=== PATIENT | female | born 1960 | race Two or more races ===

== ENCOUNTER 2024-07-26 12:42 | Observation (INO) | payer OTHER ==
[~2024-07-26] VITALS: Ht 162.6 cm; Wt 90.7 kg
[~2024-07-26 12:42] MED LIST: AMPDEX10 PO; AMPDEX5 PO; AMPHETAMINE; AZIT250 PO; Bactroban22 GM TOP; Cipro500 MG PO; DEXTROAMPHETAMINE; LITH450ER; Lotrimin AF113 GM TOP; OLAN10 PO; Zyprexa10 MG PO
[2024-07-26] MEDS ORDERED: DiphenhydrAMINE HCl 50 MG/ML 1ML Vial IM ONE (12:45)
[2024-07-26] MEDS ORDERED: Haloperidol Lactate Inj. 5 MG/ML Injection IM ONE (12:45)
[2024-07-26] MEDS ORDERED: LORazepam 2 MG/ML 1ML Injection IM ONE (12:45)
[2024-07-26] MEDS ORDERED: OLANZapine 10 MG Vial IM ONE (13:15)
[2024-07-26 14:43] LABS: BASOPHILS ABSOLUTE AUTO 0.04 K/mm3 (0.00-0.23); BASOPHILS PERCENT AUTO 1 % (0-2); EOSINOPHILS ABSOLUTE AUTO 0.04 K/mm3 (0.00-0.68); EOSINOPHILS PERCENT AUTO 1 % (0-6); Hematocrit 34.3 % (33.0-51.0); Hemoglobin 11.8 g/dL (11.5-16.0); IMMATURE GRAN ABSOLUTE AUTO 0.03 K/mm3 (0.00-0.10); IMMATURE GRAN PERCENT AUTO 0 % (0-1); LYMPHOCYTES PERCENT AUTO 23 % (21-46); MONOCYTES ABSOLUTE AUTO 1.25 K/mm3 (0.16-1.47); MONOCYTES PERCENT AUTO 15 % (4-13); Mean Corpuscular HGB 30.1 pg (26.0-34.0); Mean Corpuscular HGB Conc 34.4 g/dL (31.5-36.5); Mean Corpuscular Volume 88 fL (80-100); Mean Platelet Volume 9.5 fL (9.1-12.4); NEUTROPHILS ABSOLUTE AUTO 5.12 K/mm3 (1.96-9.15); NEUTROPHILS PERCENT AUTO 61 % (41-73); Platelet Count 304 K/mm3 (150-400); RDW Coefficient Variation 14.6 % (11.7-14.2); RDW Standard Deviation 47.5 fL (35.1-46.3); Red Blood Cell Count 3.92 M/mm3 (3.80-5.20); White Blood Cell Count 8.38 K/mm3 (4.00-11.30)
[2024-07-26 14:44] LABS: Source, Urine Clean Catch
[2024-07-26 14:49] LABS: Appearance, Urine Clear (Clear); Bilirubin, Urine Neg (Neg); Blood, Urine Neg (Neg); Glucose Qualitative, Urine Neg (Neg); Ketones, Urine Neg (Neg); Leukocyte Esterase, Urine 3+ (Neg); Nitrite, Urine Neg (Neg); Protein, Urine 1+ (Neg); Specific Gravity, Urine 1.005 (1.003-1.022); Urobilinogen, Urine NORM (Normal)
[2024-07-26 14:56] LABS: Color, Urine No Color (P-Yellow)
[2024-07-26 15:11] LABS: U Amphetamine Screen Not Detected; U Barbituate Screen Not Detected; U Benzodiazapine Screen Not Detected; U Buprenorphine Screen Not Detected; U Cannabinoids Screen Not Detected; U Cocaine Screen Not Detected; U Methadone Screen Not Detected; U Methamphetamine Screen DETECTED; U Opiates Screen Not Detected; U Oxycodone Screen Not Detected; U Phencyclidine Screen Not Detected
[2024-07-26 15:14] LABS: Bacteria Few /hpf; Red Blood Cells, Urine Not Seen /hpf (0-2); Renal Epithelial Rare /hpf (0-Rare); Squamous Epithelial Cells Few /hpf (Few); Transitional Epithelial Cells Rare /hpf (0-Rare)
[2024-07-26 15:15] LABS: Ethanol (Alcohol), Blood, Med <3 mg/dL; Free Thyroxine 1.34 ng/dL (0.70-1.60); Salicylate <1.7 mg/dL (2.8-20.0)
[2024-07-26 15:16] LABS: Acetaminophen, Random <2.0 ug/mL (10.0-30.0); Alanine Aminotransfer (ALT/SGP 28 U/L (12-78); Albumin, Blood 3.3 g/dL (3.4-5.0); Albumin/Globulin Ratio 0.9 (0.8-1.8); Alk Phos 99 U/L (50-136); Anion Gap 14 mmol/L (3-11); Aspartate Aminotrans (AST/SGOT 41 U/L (12-37); Bilirubin, Total 1.1 mg/dL (0.1-1.0); Blood Urea Nitrogen 20 mg/dL (8-24); Bun/Creatinine Ratio 23.4 (12.0-20.0); CO2, Blood 25 mmol/L (21-32); Calcium, Blood 8.5 mg/dL (8.5-10.1); Chloride, Blood 100 mmol/L (98-108); Creatinine, Blood 0.86 mg/dL (0.40-1.00); Globulin, Blood 3.8 g/dL (2.2-4.0); Glomerular Filtration Rate 76 (60-); Glucose, Blood 112 mg/dL (70-99); Potassium, Blood 3.1 mmol/L (3.5-5.5); Sodium, Blood 136 mmol/L (136-145); Total Protein, Blood 7.1 g/dL (6.4-8.2)
[2024-07-26] MEDS ORDERED: Doxycycline Hyclate 100 MG TAB PO SCH (21:00)
[2024-07-27 21:45] VITALS: BP 112/78
[2024-07-28] MEDS ORDERED: DOXY100 PO (09:38)
[2024-07-30 21:28] LABS: AMITRIPTYLINE, QUANT, URN <100 ng/mL; CLOMIPRAMINE QUANT, URN <200 ng/mL; DESIPRAMINE QUANT, URN <100 ng/mL; DOXEPIN QUANT, URN <100 ng/mL; IMIPRAMINE QUANT, URN <100 ng/mL; NORCLOMIPRAMINE QUANT, URN <200 ng/mL; NORDOXEPIN QUANT, URN <100 ng/mL; NORTRIPTYLINE, QUANT, URN <100 ng/mL; PROTRIPTYLINE QUANT, URN <100 ng/mL
== END 2024-07-28 11:13 | disposition home or self-care (01) ==
LOC: ER 12:42 → EOR 12:43
PROVIDERS: Emergency Medicine; ADMIT Student in an Organized Health Care Education/Training Program
DX: F15.229 Other stimulant dependence with intoxication, unspecified (principal); F20.9 Schizophrenia, unspecified; J45.909 Unspecified asthma, uncomplicated; F17.200 Nicotine dependence, unspecified, uncomplicated; Z79.899 Other long term (current) drug therapy; Z88.0 Allergy status to penicillin; Z88.1 Allergy status to other antibiotic agents; Z88.5 Allergy status to narcotic agent; Z88.7 Allergy status to serum and vaccine
CPT/HCPCS: 80053; 80320; 81001; 84439; 84443; 85025; 96372; 99285-25; A9270; G0378; G0480; G0481; J1200; J1630; J2060

== ENCOUNTER 2024-09-24 23:11 | Emergency (ER) | payer OTHER ==
[~2024-09-24] VITALS: Ht 152.4 cm; Wt 65.8 kg
[~2024-09-24 23:11] MED LIST changes: +DOXY100 PO
[2024-09-24 23:25] VITALS: BP 130/99
[2024-09-25] MEDS ORDERED: SULTRIDS PO (03:50)
== END 2024-09-25 03:58 | disposition home or self-care (01) ==
LOC: ER 23:11
DX: L03.116 Cellulitis of left lower limb (principal); J45.909 Unspecified asthma, uncomplicated; Z59.89 Other problems related to housing and economic circumstances; Z88.0 Allergy status to penicillin; Z88.1 Allergy status to other antibiotic agents; Z88.9 Allergy status to unspecified drugs, medicaments and biological substances; Z88.2 Allergy status to sulfonamides; Z79.899 Other long term (current) drug therapy; Z79.1 Long term (current) use of non-steroidal anti-inflammatories (NSAID); Z79.2 Long term (current) use of antibiotics
CPT/HCPCS: 99283

== ENCOUNTER 2024-11-07 10:35 | Inpatient (IN) | payer OTHER ==
[~2024-11-07] VITALS: Ht 149.9 cm; Wt 57.0 kg
[~2024-11-07 10:35] MED LIST changes: +SULTRIDS PO
[2024-11-07 11:46] VITALS: BP 125/94
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
--- NOTE | 2024-11-07 13:20 | NUR ---
ADDITIONAL ADMISSION NOTE PT DOES HAVE ON A SOLID BRACLET TO HER R WRIST THAT WILL NOT SLIP OFF OF HER HAND. SHE ALSO HAS 3 RINGS ON THAT WILL NOT COME OFF.
[2024-11-07] MEDS ORDERED: Ondansetron 4 MG SoluTab MM PRN (16:25)
[2024-11-07] MEDS ORDERED: LORazepam 2 MG Tab PO PRN (16:25)
[2024-11-07] MEDS ORDERED: Ibuprofen 600 MG Tab PO PRN (16:25)
[2024-11-07] MEDS ORDERED: Haloperidol 5 MG Tab PO PRN (16:25)
[2024-11-07] MEDS ORDERED: HydrOXYzine Pamoate 50 MG Cap PO PRN (16:25)
[2024-11-07] MEDS ORDERED: Polyethylene Glycol 3350 17 gm PO PRN (16:25)
[2024-11-07] MEDS ORDERED: OLANZapine ODT 10 MG Tab MM PRN (16:30)
[2024-11-07] MEDS ORDERED: LORazepam 2 MG/ML 1ML Injection IM PRN (16:30)
[2024-11-07] MEDS ORDERED: Acetaminophen 325 MG TABLET PO PRN (16:30)
[2024-11-07] MEDS ORDERED: Calcium Carbonate 500 MG Tab Chew PO PRN (16:30)
[2024-11-07] MEDS ORDERED: Aluminum Hydroxide 320MG/5ML 473 ML PO PRN (16:30)
[2024-11-07] MEDS ORDERED: TraZODone HCl 50 MG Tab PO PRN (16:30)
[2024-11-07] MEDS ORDERED: Melatonin 3 MG Tab PO PRN (16:35)
[2024-11-07] MEDS ORDERED: DiphenhydrAMINE HCl 50 MG/ML 1ML Vial IM PRN (16:35)
[2024-11-07] MEDS ORDERED: DiphenhydrAMINE HCl 50 MG Cap PO PRN (16:35)
[2024-11-07] MEDS ORDERED: Haloperidol Lactate Inj. 5 MG/ML Injection IM PRN (16:35)
[2024-11-07 20:00] VITALS: BP 113/82
[2024-11-07] MEDS ORDERED: OLANZapine 10 MG Tab PO SCH (21:00)
--- NOTE | 2024-11-08 05:52 | NUR ---
SHIFT SUMMARY NO ACUTE EVENTS. PT SLEPT FOR WHOLE SHIFT, DECLINED SNACKTIME OR TO COME OUT OF ROOM. TOOK MEDICATIONS. DENIED SI, HI, AVTH. ANSWERED W/ ONE WORD ANSWERS, CONSTRICTED AFFECT, APPEARED IRRITABLE.
[2024-11-08 08:05] LABS: CHOL/HDL RATIO 2.8; Cholesterol 150 mg/dL (50-200); HDL Cholesterol 54 mg/dL (>39); LDL/HDL RATIO 1.4; Low Density Lipoprotein Chol 78 mg/dL (0-110); Triglycerides 91 mg/dL (30-160); Very Low Density Lipoprot Chol 18 mg/dL (6-32)
[2024-11-08] MEDS ORDERED: Multivitamins 1 Tab PO SCH (09:00)
[2024-11-08 12:38] VITALS: BP 113/82
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
[2024-11-08 23:14] VITALS: BP 129/80
--- NOTE | 2024-11-09 05:05 | NUR ---
SHIFT SUMMARY PT SLEPT/RESTED QUIETLY FOR MOST OF SHIFT, DID NOT COME TO SNACKTIME. TOOK MEDICATIONS. DENIES SI, HI, AVTH. PT AWAKE IN MIDDLE OF NIGHT FOR SNACK AND TO ASK FOR PRN BEDTIME MEDS. SLEEPING/RESTING QUIETLY SINCE THEN.
[2024-11-09 12:34] VITALS: BP 110/86
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
[2024-11-09 20:14] VITALS: BP 120/83
--- NOTE | 2024-11-09 20:20 | NUR ---
JEWELRY IN PLACE PT NOTED TO HAVE A BRACELET TO RIGHT WRIST AND 3 RINGS (1 TO RIGHT MIDDLE FINGER, 1 TO LEFT INDEX FINGER AND 1 TO LEFT MIDDLE FINGER) ALL IN PLACE AND INTACT, AND UNABLE TO REMOVE.
--- NOTE | 2024-11-10 04:12 | NUR ---
SHIFT SUMMARY PT IN BED AT START OF SHIFT, AWAKES EASILY FOR SNACK. SHE DENIES ANY SI, HI, THOUGHTS OF SELF HARM OR AVH. NO INTERNAL STIMULI NOTED. PT STATES SHE DOES NOT KNOW WHY SHE IS HERE OR WHY THE POLICE BROUGHT HER HERE. PT HAD EVENING SNACK AND WAS COMPLIANT WITH MEDICATIONS. SHE SEEMED IRRITATBLE WHILE ANSWERING QUESTIONS BUT WAS COOPERATIVE. SHE WENT TO BED AFTER SNACK AND AWOKE AROUND 0030 ASKING FOR A SNACK. PT INFORMED OF UNIT POLICY AND WENT BACK TO BED. SHE HAS BEEN SLEEPING/RESTING THROUGHOUT THE NIGHT. Q15 MINUTE CHECKS TO CONTINUE PER PT SAFETY.
--- NOTE | 2024-11-10 15:07 | NUR ---
NURSE NOTE ANA ASKEW COMPUTER LAB PARA PROFESSIONAL FOUND SPILLED COFFEE IN PT'S ROOM. SHE LEFT ROOM TO GET PROVISIONS TO CLEAN IT UP D/T IT WAS A LARGER QUANTITY, AND UPON RETURNING TO PT'S ROOM THE SPILL HAD BEEN CLEANED UP. PT REFUSED TO ANSWER WHAT SHE CLEANED IT UP WITH SO THE ROOM WAS INVESTIGATED BY CADDIE SUPERVISOR AND COMPUTER LAB PARA PROFESSIONAL TO SEE IF THERE WAS SOILED LINENS OR SOAKING PAPER PRODUCTS AND NOTHING WAS FOUND THAT COULD HAVE CLEANED IT UP. THIS UPSET THE PATIENT AND SHE GOT ELEVATED AND STARTED PACING UP AND DOWN THE HALLWAY AGITATED AND CALLING THE STAFF "ANNEMARIE HERNANDEZ" AND REFUSING TO REDIRECT. SHE WAS COOPERATIVE WITH BEING MEDICATED WITH ZYPREXA. AND THEN SHE ATTENDED GROUP.
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
[2024-11-10 19:54] VITALS: BP 124/88
--- NOTE | 2024-11-10 20:41 | NUR ---
PT STATES SHE IS ALLERGIC TO BACTRIM BUT DOES NOT ELABORATE ON TYPE OF REACTION. DOES ADMIT TO "SEVERE STOMACH UPSET" BUT DOES NOT CLARIFY ANYTHING FURTHER. MD NOTIFIED - MED HELD FOR PM DOSE AND MD STATES HE WILL CHANGE IN AM.
[2024-11-10] MEDS ORDERED: OLANZapine 5 MG Tab PO SCH (21:00)
[2024-11-10] MEDS ORDERED: Trimethoprim/Sulfamethoxazole SS Tab PO SCH (21:00)
--- NOTE | 2024-11-10 21:56 | NUR ---
MID SHIFT SUMMARY FOR REPORT OFF: REPORT GIVEN TO CHAPITO Monzon RN. PATIENT HAD AN UNEVENTFUL EVENING. PARTICIPATED IN SNACK AND THEN REQUESTED MEDICATIONS FOR SLEEP - ADMINISTERED PER ORDERS. PT HAS SLEPT (EYES CLOSED, DEEP EVEN BREATHIN) SINCE THAT TIME. EXPRESSED NO OTHER NEEDS THIS EVENING. DENIES SI/HI/HALLUCINATIONS THOUGHT DOES STATE THAT TOSIN MON SPEAKS TO HER AND "TELLS ME I'M BEAUTIFUL EVEN THOUGH I'M FAT."
--- NOTE | 2024-11-11 04:57 | NUR ---
SHIFT SUMMARY ASSUMED CARE 2200, PATIENT CONTINUES TO BE SLEEPING RESP EVEN AND UNLABORED. MONITORING Q15MIN
[2024-11-11 08:25] VITALS: BP 104/77
[2024-11-11] MEDS ORDERED: Nicotine Polacrilex 2 MG Gum PO PRN (12:50)
--- NOTE | 2024-11-11 17:42 | NUR ---
SHIFT NOTE PT DENIED ALL HI/SI/AVH THIS SHIFT, YET STILL CONTINUES TO HAVE CONVERSTIONS WITH HERSELF. SHE WAS COMPLIANT WITH ALL MEDICATIONS AND ATTENDED GROUPS. SHE DENIED ANY ANXIETY AND GOT SLIGHTLY AGITATED ONCE WHEN SHE WAS TOLD THAT COFFEE TIME WAS OVER AND THE STAFF WAS NOT GOING TO MAKE ANYMORE COFFEE. SHE GOT SLIGHTLY ELEVATED IN VOICE AND STOMPING BUT THEN WAS EASILY REDIRECTED TO THE GROUP AND CALMED BACK DOWN. SHE TOOK A NAP IN THE AFTERNOON BEFORE DINNER AND ATE AT ALL MEALS AND SNACKS.
[2024-11-11 20:22] VITALS: BP 103/76
[2024-11-11] MEDS ORDERED: Ciprofloxacin 500 MG Tab PO SCH (21:00)
--- NOTE | 2024-11-12 04:16 | NUR ---
SHIFT SUMMARY PATIENT IN HER ROOM RESTING AT BEGINNING OF SHIFT, UP FOR SNACK THEN BACK TO HER ROOM. DENIES SI, HI, OR AVH, AT TIMES APPEARS TO RESPOND TO INTERNAL STIMULI. PATIENT ANSWERS QUESTIONS, BUT EASILY IRRITATED WITH BEING ASKED MULTIPLE QUESTIONS IN A ROW. COOPERATIVE WITH MEDICATIONS, ANTIBIOTIC FOR UTI CHANGED TO CIPRO WHICH PATIENT AGREED TO TAKE. PATIENT SLEEPING WELL T/O NIGHT RESP EVEN AND UNLABORED CONTINUE TO MONITOR Q15MIN.
--- NOTE | 2024-11-12 04:48 | NUR ---
JEWELRY 1 BRACELET TO RIGHT WRIST, 1 RING TO RIGHT HAND, 2 RINGS TO LEFT HAND
[2024-11-12 08:26] VITALS: BP 118/79
--- NOTE | 2024-11-12 17:42 | NUR ---
SHIFT SUMMARY PT AA&O TO PERSON, PLACE, AND SITUATION. SHE IS PLEASANT AND COOPERATIVE WITH CARE. SHE DENIES SI. SHE IS RESPONDING TO INTERNAL STIMULI HAVING FULL CONVERSATIONS WITH HERSELF WHILE NO ONE IS WITH HER. SPEECH IS RAPID WITH LOOSE ASSOCIATIONS AT TIMES. SHE HAS BEEN UP TO GROUPS MEALS AND IS INTERACTING WITH PEERS. SHE IS COMPLIANT WITH MEDICATIONS AND DENIES ANY ADVERSE EFFECTS. WILL CONTINUE POC
[2024-11-12 20:22] VITALS: BP 111/83
--- NOTE | 2024-11-13 04:55 | NUR ---
SHIFT SUMMARY: PT ON BED TALKING TO HERSELF AT THE BEGINNING OF THE SHIFT. DENIES TO BE SI, HI. APPEARS TO BE DISORGANIZED IN THOUGHT PROCESS. PLEASANT AND COOPERTIVE. WENT TO SNACK AT 1999. RETURNED TO HER ROOM FOR THE NIGHT. WILL CONTINUE TO MONITOR.
[2024-11-13 08:17] VITALS: BP 108/81
--- NOTE | 2024-11-13 15:19 | NUR ---
SHIFT SUMMARY PT HAS BEEN UP SINCE THE START OF SHIFT AND HAS BEEN INVOLVED IN ALL GROUPS, INCLUDING MEALS. SHE HAS DENIED SI/HI/AVH BUT CONTINUES TO BE HYPER VERBAL, DISCUSSING GRANDIOUS IDEAS AND THOUGHTS. FOUND HER TO BE HAVING A LOUD DISCUSSION IN HER ROOM BY HERSELF WHILE DOING ROUNDS AT ONE POINT. SHE IS COOPERATIVE AND POLITE TO STAFF AND PEERS. PT HAS RECEIVED Q 15 MIN VISUAL SAFETY CHECKS THROUGHOUT SHIFT AND STAFF WILL CONTINUE WITH PLAN OF CARE FOR THIS PT.
--- NOTE | 2024-11-13 16:26 | NUR ---
ADDITION TO SHIFT SUMMARY PT HAS 3 RINGS AND BRACLET IN PLACE THAT ARE TO TIGHT TO REMOVE
[2024-11-13 20:09] VITALS: BP 113/82
--- NOTE | 2024-11-14 05:53 | NUR ---
SHIFT SUMMARY Pt is A&O, calm, cooperative, eye contact is appropriate. Pt said his mood is pretty good, tired affect is flat. Pt denies SI, HI, hallucinations. No responses to internal stimuli observed. Pt denies current pain or other medical issues. Pt was up for VS, medications, and snack but otherwise remained in her room for the entire shift. Staff continues q15m safety checks.
[2024-11-14 08:02] VITALS: BP 123/86
--- NOTE | 2024-11-14 16:44 | NUR ---
SHIFT SUMMARY PT A/O X4; DENIES SI, HI, OR HALLUCINATIONS. PT DENIES HALLUCINATIONS BUT CAN BE SEEN RESPONDING TO INTERNAL STIMULI. PT HAS LENGTHY CONVERSATIONS WITH HERSELF THAT ARE DELUSIONAL IN NATURE. PT ATTENDED MEALS BUT ISOLATED IN HER ROOM FOR THE MAJORITY OF THIS SHIFT. COOPERATIVE WITH MEDICATIONS. MONITORED VIA Q15 ROUNDING FOR SAFETY AND WELLNESS.
[2024-11-14 20:05] VITALS: BP 108/93
--- NOTE | 2024-11-15 05:34 | NUR ---
SHIFT SUMMARY Pt is A&O, calm, cooperative, eye contact is appropriate. Pt said his mood is okay, affect is flat. Pt denies SI, HI, AVH. No medical complaints. Pt was up for VS, medications, and snack but otherwise remained in her room for the entire shift. Staff continues q15m safety checks.
[2024-11-15 08:00] VITALS: BP 114/79
--- NOTE | 2024-11-15 18:04 | NUR ---
SHIFT SUMMARY PT MASS 6~ AND TREATED PER EMAR EARLIER IN SHIFT D/T TAKING AWAY PLASTIC WRAPPER THAT PT WAS USING TO TIE HAIR UP. PT REPEATEDLY STATED THAT THIS RN AND GALE RN WERE "EVIL" AND THAT GALE OWNED "[facility]". ZYPREXA EFFECTIVE W/ PT MASS 1-2~. PT CONTINUES TO HAVE CONVERSATIONS W/ SELF, BUT IS ABLE TO ANSWER QUESTIONS APPROPRIATELY. CONTINUES TO DENY SI, HI, AVTH. NO ACUTE EVENTS OTHERWISE SINCE TAKING OVER FOR ALVIN BRAGG.
[2024-11-15 20:17] VITALS: BP 112/88
[2024-11-15] MEDS ORDERED: OLANZapine 10 MG Tab PO SCH (21:00)
--- NOTE | 2024-11-16 05:19 | NUR ---
SHIFT SUMMARY Pt is A&O, calm, cooperative, eye contact is appropriate. Pt said his mood is pretty good, affect is flat. Pt denies SI, HI, AVH. No medical complaints. Pt is a bit hyperverbal when answering assessment questions and able to stay on point, but otherwise appropriate. No medical complaints. Pt was up to activity room for snack, but otherwise remained in her room the entire shift. Pt remains on q15m safety checks per unit protocol.
--- NOTE | 2024-11-16 06:00 | NUR ---
ADDITION TO SHIFT SUMMARY At approx 0550, pt was observed walking down the trejo, apparently having a conversation with herself. Patient's voice changes depending on which part of the conversation she is speaking. Staff continues to monitor.
[2024-11-16 09:12] VITALS: BP 114/90
--- NOTE | 2024-11-16 17:43 | NUR ---
SHIFT SUMMARY PT [id number] WITH INTERMITTENT GRANDIOSE DELUSIONS AND CONVERSATING LOUDLY TO HERSELF, INCLUDING ANSWERING HERSELF. PT IS OTHERWISE, PLEASANT AND COOPERATIVE WITH CARE. PT DENIED SI/HI AND AVTH THIS AM AND REPORTED A "GOOD" MOOD. SHE FOLLOWS TREATMENT PLAN INCLUDING TAKING MEDICATIONS PRESCRIBED, ATTENDING ALL MILIEU THERAPY AND MINGLING APPROPRIATELY WITH PEERS/STAFF. PT IS CURRENTLY SITTING IN GROUP ROOM WATCHING TV. DENIES ANY NEEDS AT THIS TIME. CURRENT PLAN IS TO DISCHARGE HOME ON SATURDAY. PT AWARE AND AGREEABLE TO THIS PLAN.
[2024-11-16 20:27] VITALS: BP 110/81
--- NOTE | 2024-11-17 05:51 | NUR ---
SHIFT SUMMARY Pt is A&O, calm, cooperative, eye contact is appropriate. Pt said his mood is good, better, affect is constricted. Pt denies SI, HI, AVH. No medical complaints. Pt was observed walking up and down the hallway talking to herself. Coordinator Volunteer Services asked her about this and she said that there are satellites in the kelly that follow me and I like to talk to God. Pt s speech is somewhat rapid and tangential at times. Pt retired to her room after snacktime. Pt is on q15m safety checks per unit protocol.
[2024-11-17 07:45] VITALS: BP 107/87
--- NOTE | 2024-11-17 17:17 | NUR ---
SHIFT SUMMARY PT AxOx3-4. PLEASANT AND COOPERATIVE WITH CARE. PT DENIED SI/HI AND AVTH THIS SHIFT, ALTHOUGH SHE CONTINUES TO WALK AROUND THE UNIT TALKING LOUDLY TO HERSELF INCLUDING ANSWERING HERSELF. PT IS ABLE TO ANSWER STAFF APPROPRIATELY WHEN THEY ATTEMPT REALITY BASED ENGAGMENT, HOWEVER SHE QUICKLY REVERTS BACK TO RANDOM GRANDIOSE DELUSIONS SUCH EXPRESSING DETAILS ON THE CRIMES OF THE [place] [employer], OR TELLING STAFF THEY LOOK LIKE CELEBRITIES, WHO ARE HER SON, BUT ALSO ARE . JUST TANGENTIAL IN GENERAL. SHE IS PLEASANT AND REDIRECTABLE AND ENJOYS THE COMPANY OF OTHERS. HER CURRENT DC PLAN IS FOR HER TO DC TOMORROW (SATURDAY). SHE STATES SHE KNOWS THAT SHE NEEDS TO GO TO [facility] AT [place] TO FOLLOW UP AND DEAL WITH SOME COURT STUFF. PT IS CURRENTLY SITTING IN GROUP ROOM ENGAGED IN [employer]. DENIES ANY NEEDS AT THIS TIME.
[2024-11-17 20:56] VITALS: BP 119/84
--- NOTE | 2024-11-18 04:22 | NUR ---
SHIFT SUMMARY PT PRESENT IN MILIEU AT START OF SHIFT. SHE IS TALKATIVE AND INTERACTS WITH STAFF AND PEERS. SHE STATES SHE IS EXCITED TO BE DISCHARGED. SHE DENIES ANY SI, HI, THOUGHTS OF SELF HARM OR HALLUCINATIONS. SHE DOES APPEAR TO RESPOND TO INTERNAL STIMULI WITNESSED BY TALKING TO HERSELF. PT NOTED TO HAVE DELUSIONS OF GRANDEUR AND PARANOID IDEATION. SHE IS CALM AND COOPERATIVE WITH CARE. SHE WAS COMPLIANT WITH MEDICATIONS AND RECEIVED PRN TRAZODONE AND MELATONIN. SHE HAD EVENING SNACK AND WENT TO BED. SHE HAS BEEN SLEEPING/RESTING THROUGHOUT THE NIGHT. Q15 MINUTE CHECKS TO CONTINUE PER PT SAFETY.
[2024-11-18 07:46] VITALS: BP 142/109
--- NOTE | 2024-11-18 08:31 | NUR ---
IMPORTANT DISCHARGE NOTE PATIENT REQUESTING TO BE DISCHARGED ON FOOT. SHE WAS PROVIDED A ROLLING CART FOR HER POSSESSIONS AND A RESOURCE GUIDE. PLEASE SEND DISCHARGE SUMMARY TO DR. SOSA AT [facility] AT PATIENT HAS A FOLLOW UP/JAMES APPOINTMENT WITH NEW PCP DR. SOSA AT [facility], PLEASE ENCOURAGE ROXANNE TO ATTEND. PHARMACY: [facility] PATIENT HAS BEEN GIVEN RESOURCES FOR: [facility], SHELTERS AVAILABLE IN OUR AREA,AND FOOD PANTRYS.
[2024-11-18] MEDS ORDERED: OLAN10 PO (09:37)
--- NOTE | 2024-11-18 13:32 | NUR ---
DISCHARGE ROXANNE DISCHARGED @ 1300 W/ BELONGINGS AND DISCHARGE INFORMATION. MEDICATIONS FAXED AND RESOURCES GIVEN TO PT. SUMMARY NO ACUTE EVENTS TODAY. PT DENIES SI, HI, AVTH. CONTINUES TO HAVE TWO SIDED CONVERSATIONS W/ SELF OUTLOUD AND REPEATEDLY STATED SHE WAS GOING TO [place]. WENT TO GROUPS AND ATE DURING MEALTIMES.
== END 2024-11-18 14:22 | disposition home or self-care (01) | DRG 885 ==
LOC: BHU 10:35
PROVIDERS: ADMIT Student in an Organized Health Care Education/Training Program
DX: F20.0 Paranoid schizophrenia (principal); Z59.01 Sheltered homelessness; F15.10 Other stimulant abuse, uncomplicated; R10.2 Pelvic and perineal pain; R40.0 Somnolence; Z88.0 Allergy status to penicillin; Z88.1 Allergy status to other antibiotic agents; Z88.5 Allergy status to narcotic agent; Z88.7 Allergy status to serum and vaccine; Z79.899 Other long term (current) drug therapy; Z79.1 Long term (current) use of non-steroidal anti-inflammatories (NSAID); Z88.8 Allergy status to other drugs, medicaments and biological substances
CPT/HCPCS: 36415; 80061; 83036; A9270

== ENCOUNTER 2025-03-05 02:57 | Emergency (ER) | payer OTHER ==
[~2025-03-05] VITALS: Ht 149.9 cm; Wt 54.4 kg
[2025-03-05 03:14] VITALS: BP 123/76
[2025-03-05] MEDS ORDERED: Trimethoprim/Sulfamethoxazole DS Tab PO ONE (04:10)
== END 2025-03-05 04:41 | disposition home or self-care (01) ==
LOC: ER 02:57
DX: T14.8XXA Other injury of unspecified body region, initial encounter (principal); L03.90 Cellulitis, unspecified; J45.909 Unspecified asthma, uncomplicated; F17.200 Nicotine dependence, unspecified, uncomplicated; Z79.899 Other long term (current) drug therapy; Z88.0 Allergy status to penicillin; Z88.7 Allergy status to serum and vaccine; Z88.6 Allergy status to analgesic agent; Z88.1 Allergy status to other antibiotic agents
CPT/HCPCS: 99282; A9270

== ENCOUNTER 2025-04-26 16:35 | Emergency (ER) | payer OTHER ==
[~2025-04-26] VITALS: Ht 149.9 cm; Wt 64.9 kg
[2025-04-26 16:45] VITALS: BP 117/68
== END 2025-04-26 17:56 | disposition left against medical advice (07) ==
LOC: ER 16:35
DX: S42.211A Unspecified displaced fracture of surgical neck of right humerus, initial encounter for closed fracture (principal); F17.200 Nicotine dependence, unspecified, uncomplicated; Z53.29 Procedure and treatment not carried out because of patient's decision for other reasons; Z88.7 Allergy status to serum and vaccine; Z88.0 Allergy status to penicillin; Z88.2 Allergy status to sulfonamides; Z88.1 Allergy status to other antibiotic agents; Z88.5 Allergy status to narcotic agent; Z79.899 Other long term (current) drug therapy; Z59.01 Sheltered homelessness; X58.XXXA Exposure to other specified factors, initial encounter
CPT/HCPCS: 73060; 99283-25